=== PATIENT | male | born 1950 | race Caucasian/White ===

== ENCOUNTER 2019-04-07 18:14 | Emergency (ER) | payer MEDICARE ==
[~2019-04-07] VITALS: Ht 180.3 cm; Wt 127.0 kg
[2019-04-07 18:18] VITALS: Ht 180.3 cm; Wt 127.0 kg
[2019-04-07] MEDS ORDERED: GLUCOPHAGE1000 MG PO (18:22)
[2019-04-07] MEDS ORDERED: BACLOFEN20 M1 PO (21:28)
[2019-04-07 21:54] VITALS: BP 165/85
== END 2019-04-07 21:54 | disposition home or self-care (01) ==
LOC: D.ER 18:14
DX: M79.605 Pain in left leg (principal); M79.10 Myalgia, unspecified site; E11.9 Type 2 diabetes mellitus without complications; I10 Essential (primary) hypertension; I25.10 Atherosclerotic heart disease of native coronary artery without angina pectoris

== ENCOUNTER → 2019-09-15 08:53 | Outpatient (CLI) | payer MEDICARE ==
--- NOTE | ~2019-09-15 | ST ---
PATIENT:RODNEY SMITH MEDICAL RECORD: [id number] SEX: M LOCATION:[facility] ORDER #: ADMISSION DATE: 09/15/19 AGE OF PATIENT: 69 REFERRING PHYSICIAN: INTERPRETING PHYSICIAN: ALEC CAST MD DATE OF SERVICE: 09/15/2019 PROCEDURE: Nuclear stress test. INDICATION: Angina, hypertension, hyperlipidemia, coronary artery disease. He was exercised on standard Lexiscan protocol with 33 mCi of sestamibi injected at peak stress, 11 mCi used previously for rest images. FINDINGS: Gated SPECT reveals a dilated cardiomyopathy, ejection fraction 43% with decreased thickening and brightening throughout the inferior segments. SPECT imaging Cardiolite was used as myocardial perfusion agent. There is a fixed perfusion defect inferiorly and apically compatible with previous inferoapical myocardial infarction. There is no ongoing ischemia. The remaining segments are with homogeneous uptake at rest and stress. OVERALL IMPRESSION: This is an abnormal, but stable nuclear stress test showing only a previous inferoapical myocardial infarction and mild cardiomyopathy, ejection fraction 43%. TRANSINT:[id number] Voice Confirmation ID: [id number] DOCUMENT ID: [id number] ALEC CAST MD CC: LYNETTE CAMPOS MD [id number] DICTATION DATE: 09/17/19 1426 BREAKING MACHINE OPERATOR: 09/18/19 0139 DEP CLI 09/15/[address] [address]
[~2019-09-15 08:53] MED LIST: BACLOFEN20 M1 PO; GLUCOPHAGE1000 MG PO
== END | disposition home or self-care (01) ==
LOC: D.HCCARDIO 08:53
PROVIDERS: ATTEND Internal Medicine Interventional Cardiology
DX: I25.709 Atherosclerosis of coronary artery bypass graft(s), unspecified, with unspecified angina pectoris (principal)

== ENCOUNTER 2020-03-23 11:47 | Day surgery (SDC) | payer MEDICARE ==
[~2020-03-23] VITALS: Ht 180.3 cm; Wt 125.5 kg
--- NOTE | ~2020-03-23 | HEMODYNAMI ---
PATIENT:RODNEY SMITH MEDICAL RECORD: [id number] : 54 LOCATION:[facility] ADMISSION DATE: 03/23/20 Generatedon:03/23/202016:48 Patient name: RODNEY SMITH Patient #: [id number] SSN: [id number] : 1950 Date of study: 03/23/2020 Page: Of Hemodynamic Procedure Report Patient Data Patient Demographics Procedure consent was obtained First Name: RODNEY Gender: Male Last Name: SARAH : 1950 Middle Initial: RAY Age: 70 year(s) Patient #: [id number] Race: SSN: [id number] Additional ID: [id number] Contact details Address: [address] [place] [address] State: [place] City: [place] Zip code: [address] Past Medical History Allergies: No known allergies Admission Admission Data Admission Date: 03/23/2020 Admission Time: 11:47 Arrival Date: 03/23/2020 Arrival Time: 0:00 Height (in.): 70.87 BSA: 2.42 (m2) Height (cm.): 180 BMI: 38.89 (kg/m2) Weight (lbs.): 277.78 Weight (kg.): 126 Lab Results Lab Result Date: 03/23/2020 Lab Result Time: 0:00 Biochemistry Name Units Result Min Max BUN mg/dl 22 --(----)-* 7 18 Creatinine mg/dl 0.9 --(-*--)-- 0.6 1.3 eGFR ml/min 88.63824 -*(----)-- 90 120 NONAFRICAN CBC Name Units Result Min Max Hematocrit % 46.3 --(-*--)-- 42 54 Hemoglobin g/dl 15.3 --(-*--)-- 13.5 17.5 Procedure Procedure Types Cath Procedure Diagnostic Procedure LHC Coronaries w/Grafts Aortic Root Angiography Sedation Charges Moderate Sedation up to 30 minutes PCI Procedure Coronary Stent Coronary Stent Initial Hemochron ACT Test Procedure Description Procedure Date Procedure Date: 03/23/2020 Procedure Start Time: 16:05 Procedure End Time: 16:45 Procedure Staff Name Function Atul Shea MD Performing Physician Kendra Davis RT Monitor Kerwin Jacobsen RN Nurse Osmar Toledo RT Scrub Indication Angina Procedure Data Cath Procedure Fluoroscopy Diagnostic fluoroscopy Total fluoroscopy Time: 10 time: 10 min min Diagnostic fluoroscopy Total fluoroscopy dose: dose: 2059 mGy 2059 mGy Contrast Material Contrast Material Type Amount (ml) Isovue 300 155 Entry Location Entry Primary Successful Side Size Upsize Upsize Entry Closure Succes sful Closure Location (Fr) 1 (Fr) 2 (Fr) Remarks Device Remarks Femoral Right 5 Fr 6 Fr Exoseal artery Short Estimated blood loss: 10 ml Diagnostic catheters Device Type Used For End Catheter Placement MULTIPACK JL 4.0 5Fr Left Coronary catheter Angiography MULTIPACK 3DRC 5Fr Right Coronary catheter Angiography MULTIPACK Pigtail 5 Fr LV Angiography catheter Procedure Complications No complications Procedure Medications Medication Administration Route Dosage Oxygen etCO2 Nasal cannula 2 l/min Lidocaine 2% added to field 20 Heparin Flush Bag added to field 2 bags (1000units/500ml NS) 0.9% NaCl I.V. 100 ml/hr Versed I.V. 2 mg Fentanyl I.V. 100 mcg Versed I.V. 1 mg Fentanyl I.V. 50 mcg Fentanyl I.V. 50 mcg Versed I.V. 1 mg Heparin Bolus I.V. 5000 units Integrilin (Bolus I.V. 11.3 ml 2mg/ml) Versed I.V. 1 mg Versed I.V. 1 mg Heparin Bolus I.V. 2000 units Plavix P.O. 600 mg Hemodynamics Rest BSA: 2.42 (m2) HGB: 15.3 (g/dl) O2 Consumption: Estimated: 293.08 (ml/min) O2 Co nsumption indexed: Estimated:121.11 (ml/min/m) Heart Rate: 83 (bpm) Snapshots Pre Cath Intra NCS Post Cath Vital Signs Time Heart Resp SPO2 etCO2 NIBP (mmHg) Rhythm Pain Sedation Rate (ipm) (%) (mmHg) Status Level (bpm) 15:41:25 82 13 97 33 159/90(125) NSR 0 (11) 10(A) , No pain 15:45:41 80 19 97 33 151/96(118) NSR 0 (11) 10(A) , No pain 15:50:01 85 19 94 39.7 137/82(121) NSR 0 (11) 10(A) , No pain 15:54:19 81 20 94 39.7 138/92(108) NSR 0 (11) 10(A) , No pain 15:58:35 82 21 98 36.7 131/90(116) NSR 0 (11) 10(A) , No pain 16:02:53 83 18 95 39.7 126/84(95) NSR 0 (11) 10(A) , No pain 16:07:07 81 17 96 36.7 136/89(108) NSR 0 (11) 10(A) , No pain 16:11:27 85 19 92 42.7 137/84(108) NSR 0 (11) 9(A) , No pain 16:15:48 81 20 92 41.9 134/85(108) NSR 0 (11) 9(A) , No pain 16:20:03 80 22 95 23.9 134/89(110) NSR 0 (11) 9(A) , No pain 16:24:21 80 16 95 38.2 141/81(111) NSR 0 (11) 9(A) , No pain 16:28:37 83 19 95 32.9 127/93(110) NSR 0 (11) 9(A) , No pain 16:32:52 79 20 96 35.2 137/90(109) NSR 0 (11) 10(A) , No pain 16:37:14 82 23 96 37.4 143/86(122) NSR 0 (11) 10(A) , No pain 16:41:30 30.7 141/94(121) NSR 0 (11) 10(A) , No pain Medications Time Medication Route Dose Verified Delivered Reason Notes Effectiveness by by 15:40:27 Oxygen etCO2 2 Atul Suresh used for Nasal l/min St Otto Jacobsen experimental rocketsled mechanic cannula 15:40:37 Lidocaine 2% added 20ml Atul Pollard for local to vial [facility] anesthetic field MD NOVA 15:40:45 Heparin Flush added 2 Atul Atul used for Bag to bags [facility] procedure (1000units/500ml field MD NOVA NS) 15:41:01 0.9% NaCl I.V. 100 Atul Buffie Per physician ml/hr St Otto Jacobsen RN, MD 16:04:00 Versed I.V. 2 mg Atul Buffie for sedation [facility] Otto Jacobsen RN, MD 16:04:06 Fentanyl I.V. 100 Atul Buffie for sedation mcg [facility] Otto Jacobsen RN, MD 16:09:51 Versed I.V. 1 mg Atul Buffie for sedation St Otto Jacobsen RN, MD 16:09:56 Fentanyl I.V. 50 Atul Buffie for sedation mcg [facility] Otto Jacobsen RN, MD 16:14:40 Versed I.V. 1 mg Atul Buffie for sedation St Otto Jacobsen RN, MD 16:14:49 Fentanyl I.V. 50 Atul Buffie for sedation mcg [facility] Otto Jacobsen RN, MD 16:19:51 Heparin Bolus I.V. 5000 Atul Buffie for verif ied units [facility] Otto Jacobsen RN anticoagulation with dr MD hollingsworth 16:21:07 Integrilin I.V. 11.3 Atul Buffie for waste d (Bolus 2mg/ml) ml St Otto Jacobsen RN antiplatelet 8.7 ml MD therapy of vial 16:24:27 Versed I.V. 1 mg Atul Buffie for sedation St Otto Jacobsen RN, MD 16:30:27 Versed I.V. 1 mg Atul Buffie for sedation St Otto Jacobsen RN, MD 16:43:24 Heparin Bolus I.V. 2000 Atul Buffie for verif ied units St Otto Jacobsen RN anticoagulation with dr MD hollingsworth after act of 166 16:45:37 Plavix P.O. 600 Atul Buffie for mg St Otto Jacobsen RN antiplatelet therapy Procedure Log Time Note 15:16:42 Informed consent obtained and on chart 15:19:42 Indication : Angina 15:19:56 Arrival Date: 03/23/2020 12:00:00 AM 15:20:02 Patient Height : 70.87 inches 15:20:07 Patient Weight : 277.78 lbs 15:20:51 Lab Result : eGFR NONAFRICAN 88.84034 ml/min 15:20:51 Lab Result : Creatinine 0.9 mg/dl 15:20:51 Lab Result : BUN 22 mg/dl 15:20:51 Lab Result : Hemoglobin 15.3 g/dl 15:20:51 Lab Result : Hematocrit 46.3 % 15:20:59 Procedure Status Elective Heart Cath (OP). 15:21:03 Kerwin Jacobsen RN sent for patient. Start room use. 15:21:06 Time tracking: Regular hours (M-F 7:00 - 5:00) 15:21:14 Plan of Care:Hemodynamics will remain stable., Cardiac rhythm will remain stable., Comfort level will be maintained., Respiratory function will remain adequate., Patient/ family verbilizes understanding of procedure., Procedure tolerated without complication., Recovers from procedure without complications.. 15:21:30 Patient allergic to No known allergies 15:21:56 H&P Date Dictated: 03/23/2020 H&P Addendum completed by physician on day of procedure. (MUST COMPLETE FOR ALL OUTPATIENTS), New H&P dictated by physician.. 15:23:39 Patient diabetic? Yes. 15:23:42 If diabetic: On Metformin? Yes 15:25:08 Patient received from Pre/Post Procedure Room to [facility]3] 1 Alert and oriented. Tansferred to table in Supine position. 15:25:09 Warm blankets applied, and lily hugger turned on for patient comfort. 15:25:10 Correct patient and procedure confirmed by team. 15:25:12 ECG and BP/O2 sat monitors applied to patient. 15:40:15 Vital chart was started 15:40:20 Baseline sample Acquired. 15:40:27 Oxygen 2 l/min etCO2 Nasal cannula was administered by Kerwin Jacobsen RN; used for procedure; Verbal order read back and verified. 15:40:37 Lidocaine 2% 20ml vial added to field was administered by Atul Shea MD; for local anesthetic; Verbal order read back and verified. 15:40:37 Rhythm: sinus rhythm 15:40:40 Full Disclosure recording started 15:40:41 - 15:40:42 Pre-procedure instructions explained to patient. 15:40:43 Pre-op teaching completed and patient verbalized understanding. 15:40:45 Heparin Flush Bag (1000units/500ml NS) 2 bags added to field was administered by Atul Shea MD; used for procedure; Verbal order read back and verified. 15:40:47 Family in patients room. 15:40:49 Patient NPO since Midnight. 15:40:56 Is the patient allergic to Iodine/contrast media? No. 15:41:00 Was the patient premedicated? Yes 15:41:01 0.9% NaCl 100 ml/hr I.V. was administered by Kerwin Jacobsen RN; Per physician; Verbal order read back and verified. 15:41:06 Is patient on blood thinner?No 15:41:30 If on Metformin: Last Dose? 03/21/2020 15:41:32 ----Pre-sedation anethsthesia assessment.---- 15:41:37 Previous problem with sedation/anesthesia? No ? 15:41:39 Snore? Yes 15:41:41 Sleep apnea? No 15:41:44 Deviated septum? Unknown 15:41:46 Opens mouth fully? Yes 15:41:49 Sticks out tongue? Yes 15:41:58 Airway obstruction? Yes ASTHMA 15:42:02 Dentures? No ? 15:42:12 Pre procedure: right dorsailis pedis pulse 2+ Normal; easily identifiable; not easily obliterated 15:42:22 IV patent on arrival in left antecubital with 0.9% NaCl at [facility]. 15:42:29 Lab results completed and on chart. 15:42:35 Right groin area was prepped with chlora-prep and draped in sterile fashion 15:42:37 Alarms reviewed by R. N. 15:42:38 Sharps counted by scrub and verified by R.N. 15:42:43 Use device set Femoral Dx 15:42:45 ACIST Syringe (67559) opened to sterile field. 15:42:45 Bag Decanter (2002) opened to sterile field. 15:42:46 Medline Cath Pack ([id number]) opened to sterile field. 15:42:47 ACIST Hand Control (13347) opened to sterile field. 15:42:48 ACIST Manifold (00145) opened to sterile field. 15:42:49 DIAGNOSTIC Multipack 5Fr catheter set ([id number]) opened to sterile field. 15:42:50 Tegaderm 4 x 4 (1626W) opened to sterile field. 15:42:52 SHEATH 5FR Diana (HNE057) opened to sterile field. 15:42:53 EMERALD Guide Wire (441-604) opened to sterile field. 15:46:40 Zero performed for pressure channel P1 15:49:23 Risk of Mortality: 0.1 15:49:27 Risk of blood transfusion: 0.2 15:49:32 Risk of REILLY: 0.2 16:03:10 Physician arrived 16:03:10 --------ALL STOP TIME OUT------ 16:03:11 Final Timeout: patient, procedure, and site verified with staff and physician. All members of the team are in agreement. 16:03:14 Right groin site verified by team. 16:03:19 Fire Safety Assessment: A--An alcohol-based skin anteseptic being used preoperatively., C--Open oxygen or nitrous oxide is being used., D--An ESU, laser, or fiber-optic light is being used. 16:03:23 Physical assessment completed. ASA score P 2 - A patient with mild systemic disease as per Atul Shea MD. 16:03:30 2) 60-89 Mildly reduced kidney function, and other findings (as for stage 1) point to kidney disease. 16:03:35 Maximum allowable contrast dose (3.7 X eGFR X 0.75)247 ml. 16:03:41 Sedation plan: IV Moderate Sedation Medication:Versed, Fentanyl 16:04:00 Versed 2 mg I.V. was administered by Kerwin Jacobsen RN; for sedation; Verbal order read back and verified. 16:04:06 Fentanyl 100 mcg I.V. was administered by Kerwin Jacobsen RN; for sedation; Verbal order read back and verified. 16:05:50 Procedure started. 16:05:55 Local anesthetic to right femoral artery with Lidocaine 2% by Atul Menjivar MD.INITIAL ACCESS ONLY 16:07:02 A 5 Fr sheath was inserted into the Right Femoral artery 16:07:50 A MULTIPACK JL 4.0 5Fr catheter was advanced over the wire and used for Left Coronary Angiography. 16:08:31 LCA angiography performed. 16:08:35 Injector settings: Ml/sec: 3, Volume: 6, 16:09:41 Catheter removed. 16:09:51 Versed 1 mg I.V. was administered by Kerwin Jacobsen RN; for sedation; Verbal order read back and verified. 16:09:51 A MULTIPACK 3DRC 5Fr catheter was advanced over the wire and used for Right Coronary Angiography. 16:09:56 Fentanyl 50 mcg I.V. was administered by Kerwin Jacobsen RN; for sedation; Verbal order read back and verified. 16:10:38 RCA angiography performed. 16:10:47 Injector settings: Ml/sec: 3, Volume: 6, 16:13:29 LOCO to LAD angiography performed. 16:13:33 Injector settings: Ml/sec: 3, Volume: 6, 16:13:47 Catheter removed. 16:14:01 A MULTIPACK Pigtail 5 Fr catheter was advanced over the wire and used for LV Angiography. 16:14:40 Versed 1 mg I.V. was administered by Kerwin Jacobsen RN; for sedation; Verbal order read back and verified. 16:14:49 Fentanyl 50 mcg I.V. was administered by Kerwin Jacobsen RN; for sedation; Verbal order read back and verified. 16:16:01 Aortic Root visualized 16:16:14 Injector settings: Ml/sec: 15, Volume: 30, 16:16:59 Catheter removed. 16:17:07 Proceeding to intervention. 16:18:22 GUIDE 6FR XBLAD 3.5 catheter ([id number]) opened to sterile field. 16:18:23 INFLATOR Merit BasixCompak (GZ8374) opened to sterile field. 16:18:24 SHEATH 6FR Diana (SQZ323) opened to sterile field. 16:19:08 Asahi Minamo 300cm wire opened to sterile field. 16:19:31 Sheath upsized to a 6 Fr Short. 16:19:51 Heparin Bolus 5000 units I.V. was administered by Kerwin Jacobsen RN; for anticoagulation; verified with dr hollingsworth Verbal order read back and verified. 16:19:56 ACC Pre-intervention POOL Flow is 3. 16:20:08 6 Fr XBLAD3.5 guide catheter was inserted over the wire 16:20:19 [id number] wire advanced. 16:21:03 Pre PCI Site: Ruby mCirc has 100% stenosis. 16:21:07 Integrilin (Bolus 2mg/ml) 11.3 ml I.V. was administered by Kerwin Jacobsen RN; for antiplatelet therapy; wasted 8.7 ml of vial Verbal order read back and verified. 16:23:23 Wire advanced across lesion. 16:24:27 Versed 1 mg I.V. was administered by Kerwin Jacobsen RN; for sedation; Verbal order read back and verified. 16:29:46 Inflate balloon Inflation number: 1 A EMERGE OTW 3.0 x 15 balloon ([id number]) was prepped and advanced across theMID CX , then inflated to 12 KELLIE for 0:29 (min:sec) . 16:30:25 Inflation number: 2 The EMERGE OTW 3.0 x 15 balloon ([id number]) was reinflated across theMID CIRX , to 12 KELLIE for 0:22 (min:sec) . 16:30:27 Versed 1 mg I.V. was administered by Kerwin Jacobsen RN; for sedation; Verbal order read back and verified. 16:32:17 Balloon removed over the wire. 16:34:38 Place stent Inflation Number: 3 A ALEXEY OTW 3.5 x 30 stent ([id number]) was prepped and advanced across the Prox CX . The stent was deployed at 14 KELLIE for 0:25 (min:sec) . 16:36:04 Inflation number: 4 The stent balloon was then re-inflated across the Prox CX to 14 KELLIE for 0:22 (min:sec) . 16:36:13 Stent catheter was removed intact over wire. 16:36:23 ACC Post-intervention POOL Flow is 3. 16:37:02 Post PCI Site: Ruby pCirc has 0% stenosis. 16:37:18 EXOSEAL 6Fr (EX600) opened to sterile field. 16:37:22 Wire removed. 16:37:23 Guide catheter removed. 16:37:41 Sheath removed intact; hemostasis achieved with Exoseal to the Right Femoral artery. 16:37:45 Procedure ended.(Physican Out) 16:37:50 Fluoroscopy time 10.00 minutes. 16:37:57 Flurop Dose total: 2058 16:37:57 Fluoroscopy dose: 2059 mGy 16:38:06 Dose Area Product 15289 mGy/cm. 16:39:26 Contrast amount:Isovue 300 155ml. 16:39:34 Maximum allowable dose exceeded? No. 16:39:35 Sharps counted by scrub and verified by R.N. 16:39:43 Post-op/insertion site Right Femoral artery IS FEMSTOPPED. 16:39:48 Post-procedure physical assessment completed. ASA score P 2 - A patient with mild systemic disease as per Atul Shea MD. 16:39:53 Post procedure rhythm: unchanged. 16:39:59 Estimated blood loss: 10 ml 16:40:01 Post procedure instruction explained to patient.Patient verbalizes understanding. 16:40:04 Patient needs reinforcement of post procedure teaching. 16:40:46 FEMSTOP Gold (H43652) opened to sterile field. 16:41:57 Procedure type changed to Cath procedure, Diagnostic procedure, LHC, Coronaries w/Grafts, Aortic Root Angiography, Sedation Charges, Moderate Sedation up to 30 minutes, PCI procedure, Coronary Stent, Coronary Stent Initial, Hemochron ACT Test 16:42:00 Procedure and supply charges have been captured, reviewed, submitted an d are correct. 16:43:24 Heparin Bolus 2000 units I.V. was administered by Kerwin Jacobsen RN; for anticoagulation; verified with dr hollingsworth after act of 166 Verbal order read back and verified. 16:43:24 Femstop placed over the right femoral artery at 205 mmHg. Hemostasis achieved. 16:43:36 Procedure Complication : No complications 16:43:40 Vital chart was stopped 16:43:43 [facility] Findings: MVD- PCI performed (see procedure note) 16:43:51 See physician's report for complete and final results. 16:44:03 Report given to Pre/Post Procedure Room. 16:44:09 Patient transfered to Pre/Post Procedure Room with Stretcher. 16:44:51 ACT drawn and resulted at 166 seconds. (normal therapeutic range 180-24 0 seconds). 16:45:37 Plavix 600 mg P.O. was administered by Kerwin Jacobsen RN; for antiplatelet therapy; Verbal order read back and verified. 16:45:55 Procedure ended. 16:45:55 Full Disclosure recording stopped 16:46:07 ACC-PCI Only Patient was given prescriptions, or instructed by Atul Shea MD to start/continue the following medications upon discharge: Plavix 16:46:09 End room use (Document Last) Intervention Summary Intervention Notes Time ActionType Lesion and Equipment Action# Pressure Duration Attributes Used 16:29:46 Inflate Prox CX EMERGE OTW 1 12 00:29 balloon 3.0 x 15 balloon ([id number]) 16:30:25 Reinflate Prox CX EMERGE OTW 2 12 00:22 balloon 3.0 x 15 balloon ([id number]) 16:34:38 Place stent Prox CX ALEXEY OTW 3.5 3 14 00:25 x 30 stent ([id number]) 16:36:04 Reinflate Prox CX ALEXEY OTW 3.5 4 14 00:22 stent x 30 stent balloon ([id number]) Device Usage Item Name Manufacture Quantity Catalog Number Hospital Part Current M inimal Lot# / Charge Number Stock Stock Serial# Code ACIST Syringe Acist 1 19592 989786 165979 653531 2 0 (55883) Medical Systems Inc Bag Decanter Microtek 1 986428 10532 157777 5 () Medical Inc. Medline Cath Medline 1 [id number] 508406 97259 359178 5 Pack ([id number]) ACIST Hand Acist 1 89057 440808 347729 941666 5 Control Medical (61998) Systems Inc ACIST Acist 1 86250 148760 813329 327749 5 Manifold Medical (72427) Systems Inc DIAGNOSTIC Cardinal 1 MZ2118 006019 72358 821240 3 0 Multipack 5Fr Health catheter set (EM7503) Tegaderm 4 x 3M 1 1626W 634201 386701 571404 5 4 (1626W) SHEATH 5FR Terumo 1 JPV471 347903 206725 475277 5 Diana (EKC560) EMERALD Guide Cardinal 1 502-455 633136 330259 770592 5 Wire Health (502-455) MULTIPACK JL Cardinal 1 490025 5 4.0 5Fr Health catheter MULTIPACK Cardinal 1 079835 5 3DRC 5Fr Health catheter MULTIPACK Cardinal 1 948906 5 Pigtail 5 Fr Health catheter GUIDE 6FR Cardinal 1 [id number] 963835 719047 787860 1 0 XBLAD 3.5 Health catheter ([id number]) INFLATOR Merit 1 SB0334 628091 764459 507532 1 5 [place] Systems BasixCompak (GN1884) SHEATH 6FR Terumo 1 ABO520 561003 091042 829449 4 0 Diana (AJF965) Donghi Lincolno Asajewel Intecc 1 [id number] 768824 1666966 576547 0 300cm wire EMERGE OTW [place] 1 [id number] 627901 709219 254692 5 [id number] 3.0 x 15 Scientific balloon ([id number]) ALEXEY OTW 3.5 Medtronic 1 [id number] 929618 1546452 547513 5 [id number] x 30 stent ([id number]) EXOSEAL 6Fr Cardinal 1 EX600 994425 125523 571602 1 0 (EX600) Health FEMSTOP Gold St Rj 1 [id number] 980172 115860 258015 5 ([id number]) Signature Audit Emily Stage Time Signature Unsigned Intra-Procedure 03/23/2020 Kendra 4:46:30 PM Susan RT(R) (CV) Intra-Procedure 03/23/2020 Kerwin Jacobsen RN 4:47:53 PM Intra-Procedure 03/23/[address] 4:48:30 PM Otto [facility] [address] [place] [address]
--- NOTE | ~2020-03-23 | OP ---
PATIENT NAME: RODNEY SMITH MEDICAL RECORD: [id number] :54 LOCATION:D. D.1 ADMISSION DATE: SURGEON: YESSY HARTMAN MD DATE OF OPERATION: 03/23/2020 PROCEDURE: Left heart catheterization, selective coronary angiography, and right femoral artery approach. CATHETERS: A JR4 Jose pigtail catheter. The procedure was well tolerated. We proceeded to do a PTCA stenting of the circumflex. FINDINGS: Left ventriculography not performed. Aortic root injection evaluated for aortic regurgitation as well as a patent bypass graft that showed a trivial AI. No open bypasses. CORONARY ANATOMY: LEFT MAIN: Left main is free of disease. LAD: Fills for a short period of time as seen via competitive flow. CIRCUMFLEX: Left dominant system with a long diffuse calcific stenosis proximally. RIGHT CORONARY ARTERY: Rudimentary, free of disease. LOCO to LAD is widely patent throughout its course without evidence of post-anastomotic stenosis. IMPRESSION: Plan intervention of the circumflex momentarily. DESCRIPTION OF PROCEDURE: A 5-Brazilian sheath was exchanged for a 6-Brazilian sheath. An XB LAD guiding catheter provided a good guide catheter support followed by a 300 cm Minamo wire was placed across the tightly occluded circ. Pre-deployment balloon used was a 3.0 x 15 mm Kemper balloon up to 12 atmospheres. Stent deployed was a long 3.0 x 3.5 Jcarlos drug-eluting stent up to 14 atmospheres. Final angiography shows excellent resolution of a long diffuse 80-90% stenosis, no significant residual. POOL flow was 3 throughout the procedure. Heparin and Integrilin were used during the case. Plavix was loaded in the lab. Sheath closed with ExoSeal device. TRANSINT:[id number] Voice Confirmation ID: [id number] DOCUMENT ID: [id number] YESSY HARTMAN MD CC: [id number] DICTATION DATE: 03/23/20 1645 SUMMER COUNSELOR: 03/24/20 0138 [place] [id number] [place] [id number]
[2020-03-23] MEDS ORDERED: NEXIUM40 MG PO (12:32)
[2020-03-23] MEDS ORDERED: HYDROCHLOROTH12.5 M1 PO (12:33)
[2020-03-23] MEDS ORDERED: GLUCOTROL 5 MG T5 MG PO (12:33)
[2020-03-23] MEDS ORDERED: ASPIRIN325 MG PO (12:33)
[2020-03-23] MEDS ORDERED: NIACIN500 MG PO (12:34)
[2020-03-23] MEDS ORDERED: MOBIC7.5 MG PO (12:34)
[2020-03-23] MEDS ORDERED: LIPITOR40 MG PO (12:35)
[2020-03-23] MEDS ORDERED: FERROUS SULFAT325 MG PO (12:35)
[2020-03-23 12:46] VITALS: BP 157/93; Ht 180.3 cm; Wt 125.5 kg
[2020-03-23 12:52] LABS: BASOPHILS 0 % (0-2); EOSINOPHILS 1.3 % (0-7); HEMATOCRIT 46.3 % (42.0-54.0); HEMOGLOBIN 15.3 g/dL (13.5-17.5); IMMATURE GRANULOCYTES 0.3 % (0-5); LYMPHOCYTES 27.4 % (15-50); MCH 28.5 pg (26.0-34.0); MCV 86.2 fL (80.0-100.0); MEAN PLATELET VOLUME 9.3 fL (7.4-10.4); MONOCYTES 8.6 % (2-11); NEUTROPHILS 62.4 % (40-80); PLATELET COUNT 172 10x3/uL (130-400); RBC 5.37 10x6/uL (4.20-6.10); RDW 13.9 % (11.5-14.5); WBC 6.4 10x3/uL (4.8-10.8)
[2020-03-23 13:05] LABS: ALT (SGPT) 32 U/L (10-68); CALC OSMOLALITY 280 mosm/kg (275-300); CALCIUM 9.2 mg/dL (8.5-10.1); CARBON DIOXIDE 28.5 mmol/L (21.0-32.0); CHLORIDE - SERUM 103 mmol/L (98-107); CHOL - HDL RATIO 4.6 ratio (2.3-4.9); CHOLESTEROL, TOTAL 179 mg/dL (0-200); CREATININE - SERUM 0.9 mg/dL (0.6-1.3); GLUCOSE 134 mg/dL (74-106); HDL CHOLESTEROL 39 mg/dL (32-96); LDL CHOLESTEROL 94 mg/dL (0-100); LDL-HDL RATIO 2.4 ratio (1.5-3.5); POTASSIUM - SERUM 3.8 mmol/L (3.5-5.1); SODIUM 138 mmol/L (136-145); TRIGLYCERIDE 234 mg/dL (30-200); UREA NITROGEN 22 mg/dL (7-18); eGFR NON AFRICAN AMERICAN 89 mL/min (90-120)
--- NOTE | 2020-03-23 16:54 | NUR ---
PT ARRIVED BY STRETCHER. PLACED ON MONITORS. ASSESSMENT COMPLETED. VSS AT THIS TIME. CALL LIGHT WITHIN REACH. FAMILY AT BEDSIDE.
--- NOTE | 2020-03-23 17:10 | NUR ---
PT RESTING COMFORTABLY. VSS. RIGHT GROIN DRESSING C/D/I. NO S/S OF HEMATOMA NOTED. FEMSTOP IN PLACE AT 118mmHg. PT DENIES NAUSEA/PAIN AT THIS TIME. CALL LIGHT WITHIN REACH. FAMILY AT BEDSIDE.
--- NOTE | 2020-03-23 17:27 | NUR ---
REPORT CALLED TO KYLIE MELLO. PT'S NOTIFIED OF ROOM NUMBER. GAVE HER HIS PLAVIX RX AND STENT CARD.
[2020-03-23 20:00] VITALS: BP 127/68
[2020-03-24 04:00] VITALS: BP 123/70
[2020-03-24] MEDS ORDERED: PLAVIX75 MG PO (09:24)
[2020-03-24] MEDS ORDERED: BAYER CHEWABLE81 MG PO (09:24)
--- NOTE | 2020-03-24 10:15 | NUR ---
RX CALLED TO [facility]. IV AND TELEMETRY DCD. DC PLANS GIVEN. UNDERSTANDING VOICED. ESCORTED TO CAR BY W/C.
== END 2020-03-24 10:16 | disposition home or self-care (01) ==
LOC: D.CATH 11:47 → D.M2 17:30 → D.CATH 03-24 10:16
PROVIDERS: ATTEND Internal Medicine Interventional Cardiology
DX: I25.119 Atherosclerotic heart disease of native coronary artery with unspecified angina pectoris (principal); R06.02 Shortness of breath; R42 Dizziness and giddiness; I10 Essential (primary) hypertension; R06.00 Dyspnea, unspecified; E11.9 Type 2 diabetes mellitus without complications
CPT/HCPCS: 93459; 93567; C9600

== ENCOUNTER 2020-09-03 12:26 | Emergency (ER) | payer MEDICARE ==
[~2020-09-03] VITALS: Ht 180.3 cm; Wt 127.3 kg
[~2020-09-03 12:26] MED LIST changes: +ASPIRIN325 MG PO; +BAYER CHEWABLE81 MG PO; +FERROUS SULFAT325 MG PO; +GLUCOTROL 5 MG T5 MG PO; +HYDROCHLOROTH12.5 M1 PO; +ISOSORBIDE MONO30 M1 PO; +LIPITOR40 MG PO; +MOBIC7.5 MG PO; +NEXIUM40 MG PO; +NIACIN500 MG PO; +PLAVIX75 MG PO
[2020-09-03 12:45] VITALS: Ht 180.3 cm; Wt 127.3 kg
[2020-09-03] MEDS ORDERED: FARXIGA10 MG PO (12:47)
[2020-09-03 13:04] LABS: BASOPHILS 0.1 % (0-2); EOSINOPHILS 1.2 % (0-7); HEMATOCRIT 45.8 % (42.0-54.0); HEMOGLOBIN 15.4 g/dL (13.5-17.5); IMMATURE GRANULOCYTES 0.2 % (0-5); LYMPHOCYTE ABS# 2.32 10x3/uL (1.32-3.57); LYMPHOCYTES 24.8 % (15-50); MCH 28.1 pg (26.0-34.0); MCHC 33.6 g/dL (31.0-37.0); MCV 83.6 fL (80.0-100.0); MEAN PLATELET VOLUME 9.4 fL (7.4-10.4); MONOCYTES 6.3 % (2-11); NEUTROPHIL ABS# 6.29 10x3/uL (1.78-5.38); NEUTROPHILS 67.4 % (40-80); PLATELET COUNT 203 10x3/uL (130-400); RBC 5.48 10x6/uL (4.20-6.10); RDW 13.8 % (11.5-14.5); WBC 9.3 10x3/uL (4.8-10.8)
[2020-09-03 13:13] LABS: CALC OSMOLALITY 278 mosm/kg (275-300); CALCIUM 9.7 mg/dL (8.5-10.1); CARBON DIOXIDE 23.5 mmol/L (21.0-32.0); CHLORIDE - SERUM 100 mmol/L (98-107); POTASSIUM - SERUM 3.8 mmol/L (3.5-5.1); SODIUM 136 mmol/L (136-145); UREA NITROGEN 23 mg/dL (7-18); eGFR NON AFRICAN AMERICAN 79 mL/min (90-120)
[2020-09-03 13:14] LABS: APTT 32.2 SECONDS (22.8-39.4); INR 1.15 (0.85-1.17); PROTIME 13.6 SECONDS (11.6-15.0)
[2020-09-03 13:17] LABS: GLUCOSE 157 mg/dL (74-106)
[2020-09-03 13:30] LABS: ALBUMIN 4.2 g/dL (3.4-5.0); ALKALINE PHOSPHATASE 128 U/L (30-120); ALT (SGPT) 37 U/L (10-68); BILIRUBIN - TOTAL 0.46 mg/dL (0.2-1.3); CKMB 0.8 U/L (0.0-3.6); CREATINE KINASE 53 UL (21-232); TROPONIN-I < 0.017 ng/mL (0.000-0.060)
[2020-09-03 15:30] VITALS: BP 127/77
== END 2020-09-03 15:58 | disposition home or self-care (01) ==
LOC: D.ER 12:26
PROVIDERS: Family Medicine
DX: R20.0 Anesthesia of skin (principal); I65.29 Occlusion and stenosis of unspecified carotid artery; I10 Essential (primary) hypertension; E11.9 Type 2 diabetes mellitus without complications; K21.9 Gastro-esophageal reflux disease without esophagitis; Z79.84 Long term (current) use of oral hypoglycemic drugs; R07.89 Other chest pain

== ENCOUNTER → 2020-09-06 08:30 | Outpatient (CLI) | payer MEDICARE ==
[2020-09-03 12:45] VITALS: BMI 39.1
[~2020-09-06 08:30] MED LIST changes: +FARXIGA10 MG PO
== END | disposition home or self-care (01) ==
LOC: D.CT 08:30
PROVIDERS: ATTEND Internal Medicine Interventional Cardiology
DX: I65.23 Occlusion and stenosis of bilateral carotid arteries (principal)

== ENCOUNTER → 2020-10-05 10:51 | Outpatient (CLI) | payer MEDICARE ==
[2020-09-03 12:45] VITALS: BMI 39.1
== END | disposition home or self-care (01) ==
LOC: D.CT 10:51
PROVIDERS: ATTEND Psychiatry & Neurology Neurology
DX: Z86.73 Personal history of transient ischemic attack (TIA), and cerebral infarction without residual deficits (principal)

== ENCOUNTER 2020-10-25 04:04 | Inpatient (IN) | payer MEDICARE ==
[~2020-10-25] VITALS: Ht 180.3 cm; Wt 120.2 kg
--- NOTE | ~2020-10-25 | HEMODYNAMI ---
PATIENT:RODNEY SMITH MEDICAL RECORD: [id number] : 54 LOCATION:[facility] D.2111 ADMISSION DATE: 10/25/20 Generatedon:18:06 Patient name: RODNEY SMITH Patient #: [id number] SSN: [id number] : 1950 Date of study: 10/26/2020 Page: Of Hemodynamic Procedure Report Patient Data Patient Demographics Procedure consent was obtained First Name: RODNEY Gender: Male Last Name: SARAH : 1950 Middle Initial: RAY Age: 70 year(s) Patient #: [id number] Race: SSN: [id number] Additional ID: [id number] Contact details Address: [address] [place] [address] AVE State: [place] City: [place] Zip code: [address] Past Medical History Allergies: No known allergies Admission Admission Data Admission Date: 10/25/2020 Admission Time: 18:20 Room #: Procedure Procedure Types Cath Procedure Diagnostic Procedure LHC LHC w/Coronaries w/Grafts FFR/IVUS FFR Initial Sedation Charges Moderate Sedation 25-39 minutes PCI Procedure Hemochron ACT Test PTCA PTCA Initial Procedure Description Procedure Date Procedure Date: 10/26/2020 Procedure Start Time: 7:24 Procedure End Time: 8:05 Procedure Staff Name Function Austin Huffman MD Performing Physician Haley Mcmahon RT Monitor Nirmala Will RT Scrub Kerwin Jacobsen RN Nurse Procedure Data Cath Procedure Fluoroscopy Diagnostic fluoroscopy Total fluoroscopy Time: 9.2 time: 9.2 min min Diagnostic fluoroscopy Total fluoroscopy dose: dose: 1223 mGy 1223 mGy Contrast Material Contrast Material Type Amount (ml) Isovue 300 71 Entry Location Entry Primary Successful Side Size Upsize Upsize Entry Closure Succes sful Closure Location (Fr) 1 (Fr) 2 (Fr) Remarks Device Remarks Femoral Right 5 Fr 6 Fr Exoseal artery Short Estimated blood loss: 10 ml Diagnostic catheters Device Type Used For End Catheter Placement MULTIPACK JL 4.0 5Fr Procedure catheter DIAGNOSTIC IM 5Fr Procedure catheter ([id number]) MULTIPACK 3DRC 5Fr Procedure catheter Procedure Complications No complications Procedure Medications Medication Administration Route Dosage Oxygen etCO2 Nasal cannula 2 l/min Lidocaine 2% added to field 20 Heparin Flush Bag added to field 2 bags (1000units/500ml NS) 0.9% NaCl I.V. 100 ml/hr Versed I.V. 2 mg Fentanyl I.V. 50 mcg Versed I.V. 2 mg Fentanyl I.V. 50 mcg Versed I.V. 2 mg Heparin Bolus I.V. 60448 units Brilinta P.O. 90 mg Hemodynamics Rest Heart Rate: 84 (bpm) Snapshots Pre Cath Intra NCS Post Cath Vital Signs Time Heart Resp SPO2 etCO2 NIBP (mmHg) Rhythm Pain Sedation Rate (ipm) (%) (mmHg) Status Level (bpm) 7:17:41 75 21 100 14.2 156/86(132) NSR 0 (11) 10(A) , No pain 7:21:54 73 19 100 29.9 144/80(125) NSR 0 (11) 10(A) , No pain 7:26:13 73 21 94 26.2 130/79(109) NSR 0 (11) 10(A) , No pain 7:30:27 75 17 95 31.4 142/77(112) NSR 0 (11) 9(A) , No pain 7:34:41 76 18 96 29.9 139/78(103) NSR 0 (11) 9(A) , No pain 7:38:57 79 22 96 31.4 135/79(106) NSR 0 (11) 9(A) , No pain 7:43:11 81 20 97 32.9 140/78(108) NSR 0 (11) 9(A) , No pain 7:47:23 79 19 97 31.4 136/74(108) NSR 0 (11) 10(A) , No pain 7:51:39 77 20 97 29.2 134/74(106) NSR 0 (11) 9(A) , No pain 7:55:48 80 20 98 30.7 131/74(106) NSR 0 (11) 9(A) , No pain 8:00:05 81 23 99 26.2 133/74(99) NSR 0 (11) 10(A) , No pain 8:05:08 78 15 99 30 154/82(113) NSR 0 (11) 9(A) , No pain Medications Time Medication Route Dose Verified Delivered Reason Notes Effectiveness by by 7:16:03 Lidocaine 2% added 20ml Austin Austin for local to vial Nathanael Huffman MD anesthetic field 7:16:10 Heparin Flush added 2 bags Austin Austin used for Bag to Nathanael Huffman MD procedure (1000units/500ml field NS) 7:16:19 0.9% NaCl I.V. 100 Austin Buffie Per physician ml/hr Nathanael Jacobsen RN 7:16:54 Oxygen etCO2 2 Austin Buffie used for Nasal l/min Nathanael Jacobsen RN procedure cannula 7:21:26 Versed I.V. 2 mg Austin Buffie for sedation Nathanael Jacobsen RN 7:21:32 Fentanyl I.V. 50 mcg Austin Buffie for sedation Nathanael Jacobsen RN 7:27:31 Versed I.V. 2 mg Austin Buffie for sedation Nathanael Jacobsen RN 7:27:35 Fentanyl I.V. 50 mcg Austin Buffie for sedation Nathanael Jacobsen RN 7:34:33 Versed I.V. 2 mg Austin Buffie for sedation Nathanael Jacobsen RN 7:47:46 Heparin Bolus I.V. 10,000 Austin Buffie for VERIF IED units Nathanael Jacobsen RN anticoagulation WITH DR HUFFMAN 8:01:07 Brilinta P.O. 90 mg Austin Buffie for DAILY Nathanael Jacobsen RN antiplatelet DOSE therapy Procedure Log Time Note 6:58:09 Informed consent obtained and on chart 6:58:33 Procedure Status Urgent Heart Cath (IP). 6:58:37 Kerwin Jacobsen RN sent for patient. Start room use. 6:58:38 Time tracking: Regular hours (M-F 7:00 - 5:00) 6:58:41 Plan of Care:Hemodynamics will remain stable., Cardiac rhythm will remain stable., Comfort level will be maintained., Respiratory function will remain adequate., Patient/ family verbilizes understanding of procedure., Procedure tolerated without complication., Recovers from procedure without complications.. 6:58:46 H&P Date Dictated: 10/25/2020 ER History on chart.. 7:13:30 Patient received from Med II to CCL 1 Alert and oriented. Tansferred to table in Supine position. 7:16:03 Lidocaine 2% 20ml vial added to field was administered by Austin Huffman MD; for local anesthetic; Verbal order read back and verified. 7:16:10 Heparin Flush Bag (1000units/500ml NS) 2 bags added to field was administered by Austin Huffman MD; used for procedure; Verbal order read back and verified. 7:16:15 IV Extension Set opened to sterile field. 7:16:19 0.9% NaCl 100 ml/hr I.V. was administered by Kerwin Jacobsen RN; Per physician; Verbal order read back and verified. 7:16:29 Warm blankets applied, and lily hugger turned on for patient comfort. 7:16:30 Correct patient and procedure confirmed by team. 7:16:30 ECG and BP/O2 sat monitors applied to patient. 7:16:31 Vital chart was started 7:16:33 Baseline sample Acquired. 7:16:36 Rhythm: sinus rhythm 7:16:38 Full Disclosure recording started 7:16:40 Pre-procedure instructions explained to patient. 7:16:44 Family unavailable. 7:16:49 Patient NPO since Midnight. 7:16:54 Oxygen 2 l/min etCO2 Nasal cannula was administered by Kerwin Jacobsen RN; used for procedure; Verbal order read back and verified. 7:17:54 Patient allergic to No known allergies 7:17:58 Is the patient allergic to Iodine/contrast media? No. 7:18:00 Was the patient premedicated? Yes 7:18:01 Is patient on blood thinner?Yes 7:18:08 ACC The patient was administered the following blood thiners within the last 24 hours: ACCAspirin, ACCBrilinta 7:18:10 Patient diabetic? Yes. 7:18:13 If diabetic: On Metformin? Yes 7:18:19 If on Metformin: Last Dose? 10/24/2020 7:18:24 Snore? Unknown 7:18:26 Sleep apnea? No 7:18:41 Dentures? No ? 7:18:45 Patient pain scale 0/10 ?. 7:18:54 IV patent on arrival in right antecubital with 0.9% NaCl at [facility]. 7:18:57 Lab results completed and on chart. 7:19:13 Right groin area was prepped with chlora-prep and draped in sterile fashion 7:19:16 Sharps counted by scrub and verified by R.N. 7:19:19 Physician arrived 7::19 --------ALL STOP TIME OUT------ 7:19:20 Final Timeout: patient, procedure, and site verified with staff and physician. All members of the team are in agreement. 7:19:35 Right groin site verified by team. 7:19:40 Fire Safety Assessment: A--An alcohol-based skin anteseptic being used preoperatively., C--Open oxygen or nitrous oxide is being used., D--An ESU, laser, or fiber-optic light is being used. 7:19:44 Physical assessment completed. ASA score P 3 - A patient with severe systemic disease as per Austin Huffman MD. 7:19:48 2) 60-89 Mildly reduced kidney function, and other findings (as for stage 1) point to kidney disease. 7:19:51 Maximum allowable contrast dose (3.7 X eGFR X 0.75)220 ml. 7:19:56 Sedation plan: IV Moderate Sedation Medication:Versed, Fentanyl 7:20:01 Use device set Femoral Dx 7:21:26 Versed 2 mg I.V. was administered by Kerwin Jacobsen RN; for sedation; Verbal order read back and verified. 7:21:32 Fentanyl 50 mcg I.V. was administered by Kerwin Jacobsen RN; for sedation; Verbal order read back and verified. 7:24:40 Procedure started. 7:24:56 Local anesthetic to right femoral artery with Lidocaine 2% by Austin Huffman MD.INITIAL ACCESS ONLY 7:24:57 ACIST Syringe (96826) opened to sterile field. 7:24:58 Bag Decanter (2002) opened to sterile field. 7:24:58 Medline Cath Pack ([id number]) opened to sterile field. 7:24:59 ACIST Hand Control (48778) opened to sterile field. 7:25:00 ACIST Manifold (13029) opened to sterile field. 7:25:01 DIAGNOSTIC Multipack 5Fr catheter set (GF2577) opened to sterile field. 7:25:09 Tegaderm 4 x 4 (1626W) opened to sterile field. 7:25:13 SHEATH 5FR Gray (WVN212) opened to sterile field. 7:25:14 EMERALD Guide Wire (502-455) opened to sterile field. 7:27:31 Versed 2 mg I.V. was administered by Kerwin Jacobsen RN; for sedation; Verbal order read back and verified. 7:27:35 Fentanyl 50 mcg I.V. was administered by Kerwin Jacobsen RN; for sedation; Verbal order read back and verified. 7:34:33 Versed 2 mg I.V. was administered by Kerwin Jacobsen RN; for sedation; Verbal order read back and verified. 7:34:44 MICROPUNCTURE 4FR [employer] Systems (Z89394) opened to sterile field. 7:35:51 Zero performed for pressure channel P1 7:36:44 Access obtained with 4Fr micropunture. 7:37:01 A 5 Fr sheath was inserted into the Right Femoral artery 7:37:39 A MULTIPACK JL 4.0 5Fr catheter was advanced over the wire and used for Procedure. 7:38:25 LCA angiography performed. 7:41:40 Catheter removed. 7:42:00 A DIAGNOSTIC IM 5Fr catheter ([id number]) was advanced over the wire and used for Procedure. 7:42:06 LOCO to LAD angiography performed. 7:43:25 Catheter removed. 7:45:00 A MULTIPACK 3DRC 5Fr catheter was advanced over the wire and used for Procedure. 7:45:44 RCA angiography performed. 7:45:48 Catheter removed. 7:47:21 Sheath upsized to a 6 Fr Short. 7:47:31 Proceeding to intervention. 7:47:46 Heparin Bolus 10,000 units I.V. was administered by Kerwin Jacobsen RN; for anticoagulation; VERIFIED WITH DR HUFFMAN Verbal order read back and verified. 7:47:46 6 Fr EBU 3.75 guide catheter was inserted over the wire 7:48:05 GUIDE 6FR EBU 3.75 catheter ([id number]) opened to sterile field. 7:48:09 SHEATH 6FR Gray (DMA084) opened to sterile field. 7:48:09 Partlow OmniWire (49354) opened to sterile field. 7:48:10 TUBING High Pressure Extension Tubing (Nathanael) (RT4089N) opened to sterile field. 7:48:11 INFLATOR Merit BasixCompak (GP6273) opened to sterile field. 7:48:20 omni wire advanced. 7:50:18 Wire advanced across lesion. 7:52:31 Inflate balloon Inflation number: 1 A Mozec Rx 3.5 x 14 balloon was prepped and advanced across the Prox CX , then inflated to 13 KELLIE for 0:20 (min:sec) . 7:54:22 Inflation number: 2 The Mozec Rx 3.5 x 14 balloon was reinflated across the Prox CX , to 13 KELLIE for 0:00 (min:sec) . 7:54:30 Balloon removed over the wire. 7:56:05 pCirc lesion measured at .95 with IFR 7:57:11 Wire removed. 7:57:13 Guide catheter removed. 7:57:29 EXOSEAL 6Fr (EX600) opened to sterile field. 7:57:43 Sheath removed intact; hemostasis achieved with Exoseal to the Right Femoral artery. 7:57:46 Procedure ended.(Physican Out) 8:00:10 Fluoroscopy time 09.20 minutes. 8:00:55 Flurop Dose total: 1223 8:00:55 Fluoroscopy dose: 1223 mGy 8:01:03 Dose Area Product 83630 mGy/cm. 8:01:07 Brilinta 90 mg P.O. was administered by Kerwin Jacobsen RN; for antiplatelet therapy; DAILY DOSE Verbal order read back and verified. 8:01:22 Contrast amount:Isovue 300 71ml. 8:01:25 Maximum allowable dose exceeded? No. 8:01:28 Insertion/operative site no bleeding no hematoma. 8:01:33 Post-op/insertion site Right Femoral artery dressed using a 4 x 4 and Tegaderm. 8:01:37 Post Procedure Pulses reassessed and unchanged 8:01:46 Post-procedure physical assessment completed. ASA score P 3 - A patient with severe systemic disease as per Austin Huffman MD. 8:01:49 Post procedure rhythm: unchanged. 8:01:53 Estimated blood loss: 10 ml 8:01:57 Post procedure instruction explained to patient.Patient verbalizes understanding. 8:02:45 Procedure type changed to Cath procedure, Diagnostic procedure, LHC, LHC w/Coronaries w/Grafts, FFR/IVUS, FFR Initial, Sedation Charges, Moderate Sedation 25-39 minutes, PCI procedure, Hemochron ACT Test, PTCA, PTCA Initial 8:02:47 Procedure and supply charges have been captured, reviewed, submitted and are correct. 8:02:53 ACT drawn and resulted at 379 seconds. (normal therapeutic range 180-240 seconds). 8:04:36 Procedure Complication : No complications 8:04:39 Vital chart was stopped 8:04:46 [facility] Findings: MVD- PCI performed (see procedure note) 8:04:52 Operative report dictated upon procedure completion. 8:04:52 See physician's report for complete and final results. 8:04:55 Report given to [facility]. 8:05:00 Patient transfered to [facility] with Bed. 8:05:10 Procedure ended. 8:05:10 Full Disclosure recording stopped 8:05:13 End room use (Document Last) 8:05:38 End room use (Document Last) 8:06:22 End room use (Document Last) Intervention Summary Intervention Notes Time ActionType Lesion and Equipment Action# Pressure Duration Attributes Used 7:52:31 Inflate Prox CX Mozec Rx 1 13 00:21 balloon 3.5 x 14 balloon 7:54:22 Reinflate Prox CX Mozec Rx 2 13 00:00 balloon 3.5 x 14 balloon Device Usage Item Name Manufacture Quantity Catalog Hospital Part Current Mini mal Lot# / Number Charge Number Stock Stock Serial# Code IV Extension Hospira 1 18535-64 262110 76493 028383 5 Set ACIST Syringe Acist 1 04973 904134 762233 392626 20 (68455) Medical Systems Inc Bag Decanter Microtek 1 000945 97631 083571 5 () Medical Inc. Medline Cath Medline 1 [id number] 006937 73770 872762 5 Pack ([id number]) ACIST Hand Acist 1 47851 251428 435384 799774 5 Control Medical (30467) Systems Inc ACIST Acist 1 67005 530066 208985 983054 5 Manifold Medical (21622) Systems Inc DIAGNOSTIC Cardinal 1 UW7114 051411 27267 422824 30 Multipack 5Fr Health catheter set (VF4734) Tegaderm 4 x 3M 1 1626W 732338 597897 840610 5 4 (1626W) SHEATH 5FR Terumo 1 WIJ474 832282 750211 883748 5 Gray (YYJ641) EMERALD Guide Cardinal 1 502-455 352972 624697 448252 5 Wire Health (502-455) MICROPUNCTURE Cook Medical 1 P13022 287384 668020 420000 5 4FR Cook (B93831) MULTIPACK JL Cardinal 1 959206 5 4.0 5Fr Health catheter DIAGNOSTIC IM Cardinal 1 950396Z 867415 728793 452832 5 5Fr catheter Health (155911I) MULTIPACK Cardinal 1 186037 5 3DRC 5Fr Health catheter GUIDE 6FR EBU Medtronic 1 [id number] 330050 85139 156827 1 3.75 catheter (DV0QMB088) SHEATH 6FR Terumo 1 PPZ816 569458 892937 016674 40 Gray (MYU874) Partlow Partlow 1 2585777 696326 32446 9968 5 OmniWire (23968) TUBING High Merit 1 XN0128N 003063 92834 512968 10 Pressure Medical Extension Tubing (Huffman) (FT2782O) INFLATOR Merit 1 VL6398 584780 161105 388330 15 Merit Medical BasixCompak (QP5216) Mozec Rx 3.5 Cardinal 1 [id number] 209827 388786024 294089 5 UMOD85 x 14 balloon Health EXOSEAL 6Fr Cardinal 1 EX600 005151 498963 479323 10 (EX600) Health Signature Audit [place] Stage Time Signature Unsigned Intra-Procedure 10/26/2020 Haley Mcmahon 8:05:38 AM RT(R) Intra-Procedure 10/26/2020 Kerwin Jacobsen RN 8:06:22 AM Intra-Procedure 10/26/2020 Austin Huffman MD 8:06:55 AM [place] [address] [place] [address]
[2020-10-25 05:04] VITALS: BP 140/63
[2020-10-25 06:04] VITALS: BP 126/53
[2020-10-25 06:40] LABS: CKMB 2.9 U/L (0.0-3.6); CREATINE KINASE 85 UL (21-232)
[2020-10-25 06:45] LABS: TROPONIN-I 0.075 ng/mL (0.000-0.060)
[2020-10-25 07:04] VITALS: BP 129/70
[2020-10-25 10:18] LABS: CKMB 31.6 U/L (0.0-3.6)
[2020-10-25 10:23] LABS: CREATINE KINASE 259 UL (21-232)
[2020-10-25 10:30] LABS: TROPONIN-I 1.774 ng/mL (0.000-0.060)
[2020-10-25 11:13] LABS: ALT (SGPT) 37 U/L (10-68); CALC OSMOLALITY 288 mosm/kg (275-300); CALCIUM 9.1 mg/dL (8.5-10.1); CARBON DIOXIDE 23.7 mmol/L (21.0-32.0); CHLORIDE - SERUM 106 mmol/L (98-107); CHOL - HDL RATIO 3.5 ratio (2.3-4.9); CHOLESTEROL, TOTAL 131 mg/dL (0-200); CREATININE - SERUM 0.8 mg/dL (0.6-1.3); GLUCOSE 161 mg/dL (74-106); HDL CHOLESTEROL 38 mg/dL (32-96); LDL CHOLESTEROL 44 mg/dL (0-100); LDL-HDL RATIO 1.2 ratio (1.5-3.5); POTASSIUM - SERUM 4.1 mmol/L (3.5-5.1); SODIUM 142 mmol/L (136-145); TRIGLYCERIDE 247 mg/dL (30-200); UREA NITROGEN 20 mg/dL (7-18); eGFR NON AFRICAN AMERICAN > 90 mL/min (90-120)
[2020-10-25 12:02] LABS: BASOPHILS 0.1 % (0-2); EOSINOPHILS 1.1 % (0-7); HEMATOCRIT 43.4 % (42.0-54.0); IMMATURE GRANULOCYTES 0.1 % (0-5); LYMPHOCYTE ABS# 1.78 10x3/uL (1.32-3.57); LYMPHOCYTES 23.5 % (15-50); MCH 27.9 pg (26.0-34.0); MCHC 32.3 g/dL (31.0-37.0); MCV 86.6 fL (80.0-100.0); MONOCYTES 8.6 % (2-11); NEUTROPHIL ABS# 5.05 10x3/uL (1.78-5.38); NEUTROPHILS 66.6 % (40-80); PLATELET COUNT 215 10x3/uL (130-400); RBC 5.01 10x6/uL (4.20-6.10); WBC 7.6 10x3/uL (4.8-10.8)
--- NOTE | 2020-10-25 12:34 | NUR ---
PATIENT ARRIVED TO UNIT VIA WHEELCHAIR FROM THE ED AND ADMITTED TO ROOM 2111. PATIENT ALERT/ORIENTED/AMBULATORY. ORIENTED TO ROOM, CALL LIGHT WITHIN REACH. PATIENT ASKING ABOUT LUNCH, ORDER PLACED TO DIETARY REQUESTING LUNCH TRAY TO ROOM. PATIENT DENIES ANY CHEST PAIN OR DISCOMFORT AT THIS TIME. NO DISTRESS.
[2020-10-25] MEDS ORDERED: BRILINTA90 MG PO (12:40)
[2020-10-25 13:31] VITALS: BP 120/66; BMI 37.0
[2020-10-25 15:45] LABS: CREATINE KINASE 480 UL (21-232)
[2020-10-25 15:46] LABS: TROPONIN-I 7.718 ng/mL (0.000-0.060)
[2020-10-25 16:25] VITALS: BP 126/70
--- NOTE | 2020-10-25 16:57 | NUR ---
FSBS 161. 2 UNITS HUMULIN INSULIN ADMINISTERED PER SLIDING SCALE.
[2020-10-25 20:38] LABS: CKMB 76.8 U/L (0.0-3.6); CREATINE KINASE 558 UL (21-232)
[2020-10-25 20:42] LABS: TROPONIN-I 11.005 ng/mL (0.000-0.060)
--- NOTE | 2020-10-25 21:00 | NUR ---
REPORT RECEIVED, PT A&0, UP IN BED WATCHING TV. NO S/S OF DISTRESS OBSERVED. RR EVEN & UNLABORED ON RA. BED LOCKED AND LOWERED, CL IN REACH. ASSESSMENT COMPLETED. WILL CONT POC.
[2020-10-25 23:32] VITALS: BP 114/65
[2020-10-26 02:33] LABS: BASOPHILS 0.3 % (0-2); EOSINOPHILS 2.3 % (0-7); HEMATOCRIT 43.1 % (42.0-54.0); HEMOGLOBIN 14.1 g/dL (13.5-17.5); IMMATURE GRANULOCYTES 0.3 % (0-5); LYMPHOCYTES 27.2 % (15-50); MCH 27.9 pg (26.0-34.0); MCHC 32.7 g/dL (31.0-37.0); MCV 85.3 fL (80.0-100.0); MEAN PLATELET VOLUME 9.8 fL (7.4-10.4); MONOCYTES 8.9 % (2-11); NEUTROPHIL ABS# 4.04 10x3/uL (1.78-5.38); PLATELET COUNT 179 10x3/uL (130-400); RBC 5.05 10x6/uL (4.20-6.10); RDW 14.1 % (11.5-14.5); WBC 6.6 10x3/uL (4.8-10.8)
[2020-10-26 03:09] LABS: ALBUMIN 3.4 g/dL (3.4-5.0); ALKALINE PHOSPHATASE 99 U/L (30-120); ALT (SGPT) 38 U/L (10-68); CALC OSMOLALITY 286 mosm/kg (275-300); CALCIUM 8.5 mg/dL (8.5-10.1); CHLORIDE - SERUM 105 mmol/L (98-107); CKMB 63.7 U/L (0.0-3.6); CREATINE KINASE 477 UL (21-232); CREATININE - SERUM 0.9 mg/dL (0.6-1.3); GLUCOSE 152 mg/dL (74-106); MAGNESIUM - SERUM 1.9 mg/dL (1.8-2.4); POTASSIUM - SERUM 3.7 mmol/L (3.5-5.1); PROTEIN - SERUM 6.8 g/dL (6.4-8.2); SODIUM 141 mmol/L (136-145); UREA NITROGEN 22 mg/dL (7-18); eGFR NON AFRICAN AMERICAN 89 mL/min (90-120)
[2020-10-26 07:30] VITALS: BP 168/87
--- NOTE | 2020-10-26 08:10 | NUR ---
0710-TO PRINTING SERVICES COORDINATOR VIA BED. WATCH ON LEFT WRIST, GLASSES ON. RIGHT AC PIV SALINE LOCK, FLUSHES WELL. ORANGE SWAB CAP PLACED. 0808-REPORT FROM PRINTING SERVICES COORDINATOR RECOVERY. TO LAY FLAT X 4 HOURS, RIGHT GROIN.
--- NOTE | 2020-10-26 08:23 | NUR ---
BACK TO ROOM WITH RIGHT GROIN DRESSING CLEAN AND DRY. WILL MONITOR.
--- NOTE | 2020-10-26 09:24 | NUR ---
PATIENT IS SLEEPING SO NO MEDS GIVEN AT THIS TIME.
[2020-10-26 11:00] VITALS: BP 140/73
--- NOTE | 2020-10-26 12:14 | NUR ---
PLACED IN 30 DEGREE SITTING POSITION. RIGHT GROIN IS SOFT, NO BLEEDING SEEN.
[2020-10-26 13:43] VITALS: Ht 180.3 cm; Wt 120.2 kg
[2020-10-26] MEDS ORDERED: ISOSORBIDE MONO60 M1 PO (14:01)
--- NOTE | 2020-10-26 15:46 | NUR ---
VERBAL AND WRITTEN DISCHARGE INSTRUCTIONS GIVEN TO PATIENT AND . SALINE LOCK REMOVED WITH CATH TIP INTACT. DISCHARGED HOME VIA WHEELCHAIR.
--- NOTE | 2020-10-26 17:37 | MORECARE ---
CASE MANAGEMENT DISCHARGE SUMMARY PATIENT: RODNEY SMITH UNIT: [id number] ADM DATE: 10/25/20 AGE: 70 : 54 SEX: M ROOM/BED: [facility] [place] AUTHOR: PARAMDOC PHYSICIAN: REFERRING PHYSICIAN: MILAGROS MOSER MD DATE OF SERVICE: 10/26/20 Case Management Discharge Planning Summary DCP REVIEW SUMMARY ANTICIPATED D/C DATE: EXPECTED LOS : CASE STATUS: DCP Initiated INITIAL REVIEW: 10/25/2020 INITIAL REVIEWER: Marbella Oswald FINAL DISCHARGE DISPOSITION: : FINAL REVIEWER: FINAL REVIEW DATE: DCP [employer] Questions & Answers QUESTION: ANSWER : PATIENT: RODNEY SMITH ENCOUNTER: [id number] MEDICAL RECORD#: [id number] ADMISSION DATE: 10/25/2020 DISCHARGE DATE: 10/26/2020 ATTENDING MD: MILAGROS SINGH : AGE: 70 MARITAL STATUS: M DC PLAN ID: [id number] FACILITY: [facility] PRINTED ON: 10/26/20 17:37 CT All edits/amendments must be made on the electronic document DICTATION DATE: 10/26/201736 TICKET BROKER: DM 10/26/201736 RPT#: [id number] DC DATE:10/26/20 STATUS: DIS IN [facility] [address] [place] [address] END OF REPORT
== END 2020-10-26 15:48 | disposition home or self-care (01) | DRG 249 ==
LOC: D.ER 04:04 → D.M2 05:22 → OBSVTIME 05:22 → D.M2 18:20
PROVIDERS: Emergency Medicine; Family Medicine; Internal Medicine Cardiovascular Disease; ADMIT Emergency Medicine; ATTEND Emergency Medicine
PROC: 4A023N7 Measurement of Cardiac Sampling and Pressure, Left Heart, Percutaneous Approach (ICD-10-PCS; 2020-10-26)
PROC: B2111ZZ Fluoroscopy of Multiple Coronary Arteries using Low Osmolar Contrast (ICD-10-PCS; 2020-10-26)
PROC: B2151ZZ Fluoroscopy of Left Heart using Low Osmolar Contrast (ICD-10-PCS; 2020-10-26)
PROC: B2181ZZ Fluoroscopy of Left Internal Mammary Bypass Graft using Low Osmolar Contrast (ICD-10-PCS; 2020-10-26)
PROC: 02703ZZ Dilation of Coronary Artery, One Artery, Percutaneous Approach (ICD-10-PCS; principal; 2020-10-26 08:00)
PROC: 02H03DZ Insertion of Intraluminal Device into Coronary Artery, One Artery, Percutaneous Approach (ICD-10-PCS; 2020-10-26 08:00)
DX: I25.110 Atherosclerotic heart disease of native coronary artery with unstable angina pectoris (principal); I10 Essential (primary) hypertension; E78.5 Hyperlipidemia, unspecified; K21.9 Gastro-esophageal reflux disease without esophagitis; M19.90 Unspecified osteoarthritis, unspecified site